=== PATIENT | male | born 1990 | race Caucasian/White ===

== ENCOUNTER 2018-02-18 17:19 | Emergency (ER) | payer MEDICAID ==
[2018-02-18 20:04] LABS: URINE BLOOD (Dip) POC 1+ (NEGATIVE); URINE GLUCOSE (Dip) POC Negative (NEGATIVE); URINE KETONES (Dip) POC Negative (NEGATIVE); URINE LEUKOCYTE EST (Dip) POC Negative (NEGATIVE); URINE NITRITE (Dip) POC Negative (NEGATIVE); URINE TOTAL PROTEIN POC Negative (NEGATIVE)
== END 2018-02-18 21:27 | disposition home or self-care (01) ==
LOC: FTE 17:19
DX: N45.1 Epididymitis (principal)
CPT/HCPCS: 76870; 81003; 99284-25